=== PATIENT | male | born 1980 | race Caucasian/White ===

== ENCOUNTER → 2020-11-02 12:54 | Outpatient (CLI) | payer OTHER, SELFPAY ==
--- NOTE | 2020-11-02 | DI.RAD.S_ITS ---
PROCEDURE: XR DEXA AXIAL SKELETON INDICATIONS: Encounter for other specified special examinations COMPARISON: None. FINDINGS: This blank DEXA report has been sent in error by the PACS system. The correct and complete report will be forthcoming in 1-2 days. Thank you for your patience and understanding. Dictated by: Kaity Escobedo MD, PhD on 11/02/2020 at 13:52 Approved by: Kaity Escobedo MD, PhD on 11/02/2020 at 13:52
== END ==
PROVIDERS: Referring Provider Internal Medicine; Visit Provider Internal Medicine
DX: Z01.89 Encounter for other specified special examinations (principal); M85.851 Other specified disorders of bone density and structure, right thigh; Z72.0 Tobacco use
CPT/HCPCS: 77080